=== PATIENT | female | born 1935 | race Asian ===

== ENCOUNTER 2019-07-16 09:54 | Emergency (ER) | payer OTHER ==
[~2019-07-16] VITALS: Ht 157.5 cm; Wt 54.4 kg
[2019-07-16 10:25] VITALS: Ht 157.5 cm; Wt 54.4 kg
[2019-07-16 13:27] VITALS: BP 147/56
== END 2019-07-16 13:27 | disposition home or self-care (01) ==
LOC: EDBD 09:54 → ED 09:54
DX: S32.018A Other fracture of first lumbar vertebra, initial encounter for closed fracture (principal); I10 Essential (primary) hypertension; W18.39XA Other fall on same level, initial encounter; Y93.89 Activity, other specified; Y92.89 Other specified places as the place of occurrence of the external cause; Y99.8 Other external cause status